=== PATIENT | male | born 1975 | race Caucasian/White ===

== ENCOUNTER 2019-04-09 11:12 | Outpatient (CLI) | payer BC ==
--- NOTE | 2019-04-09 11:46 | RAD ---
Exam: Cervical spine 3 views HISTORY: Median nerve pain. Radiculopathy. FINDINGS: Predental space is normal. No prevertebral soft tissue swelling. In the neutral position, c ervical spine is adequately assessed from C1 through C7. No fracture. Evaluation the cervicothoracic junction is limited. In the neutral position, there is mild straightening of normal c ervical lordosis, along with 2.1 mm of anterolisthesis of C3-4 upon C5. Upon flexion, 1.5 mm of anterolisthesis C4 upon C5. Upon extension, anterolisthesis resolves. IMPRESSION: Grade 1 anterolisthesis of C4 on C5.
--- NOTE | 2019-04-09 12:06 | RAD ---
FOUR VIEWS OF THE RIGHT ELBOW: COMPARISON: None. HISTORY: Median nerve pain. Right elbow pain. FINDINGS: Four views of the right elbow show no evidence of acute fracture or dislocation. No elbow effusion i s seen. No degenerative changes are present. IMPRESSION: Unremarkable exam. POS: [id number]
== END 2019-04-09 11:13 | disposition home or self-care (01) ==
LOC: BICRAD 11:12
PROVIDERS: ATTEND Specialist
DX: G58.8 Other specified mononeuropathies (principal); M47.22 Other spondylosis with radiculopathy, cervical region; M43.12 Spondylolisthesis, cervical region
CPT/HCPCS: 72040

== ENCOUNTER 2022-12-22 12:30 | Outpatient (CLI) | payer BC | END 2022-12-22 12:31 | disposition home or self-care (01) | LOC: BICRAD 12:30 | PROVIDERS: ATTEND Specialist | DX: M25.532 Pain in left wrist (principal) ==

== ENCOUNTER 2023-06-15 12:52 | Outpatient (CLI) | payer BC | END 2023-06-15 12:53 | disposition home or self-care (01) | LOC: DTY/OP 12:52 | PROVIDERS: ATTEND Specialist | DX: E66.01 Morbid (severe) obesity due to excess calories (principal) | CPT/HCPCS: 97802 ==